=== PATIENT | male | born 1995 | race Caucasian/White ===

== ENCOUNTER 2016-10-18 10:26 | Outpatient (CLI) | payer BC ==
--- NOTE | 2016-10-18 13:48 | Diagnostic Imaging Report ---
[facility] [address] [facility].[address] [id number] Report Submission Date: Oct 18, 2016 11:08:34 AM LEAD GENERATION SPECIALIST Patient Study Name: TK BOWER Date: Oct 18, 2016 10:52:49 AM [employer]AD GENERATION SPECIALIST Modality Type: CR Gender: M Description: LOWER EXTREMITY : 89 Institution: [facility] Physician ADONIS GALLOWAY Left knee three views HISTORY: Chronic knee pain and locking FINDINGS: The left knee is unremarkable without fracture, dislocation, arthropathy, focal bone lesion, or joint effusion. Electronically signed on Oct 18, 2016 11:08:34 AM LEAD GENERATION SPECIALIST by: Farzad [id number]
== END 2016-10-18 10:27 ==
LOC: RAD 10:26
PROVIDERS: ATTEND Physician Assistant
DX: M25.562 Pain in left knee (principal)
CPT/HCPCS: 73562